=== PATIENT | female | born 1955 | race Two or more races ===

== ENCOUNTER 2016-10-03 19:26 | Emergency (ER) | payer OTHER ==
--- NOTE | ~2016-10-03 | CR181 ---
[facility] A Service of [facility] RADIOLOGY TEXT RESULTS PATIENT: ADILIA CHENG LOCATION: SED : 57 UNIT #: [id number] AGE: [address]: KALYN RAMIREZ SEX: F ORDER DR: [id number] [place] [id number] [id number] MR#: [id number] Acc #: [id number] NAME: ADILIA CHENG : 1955 SEX: F STUDY DATE/TIME: 10/03/2016 21:24 UNIT: SED ROOM: STUDY DESCRIPTION: CR Lumbar Spine 2 or 3 Views Attending Physician: Kalyn Ramirez Referring Physician: Staff Doctor Not On Ordering Physician: Gurdeep Joseph M.D. Primary Care Physician: Jaswant Amezquita M.D. MEDICAL IMAGING REPORT This report is preliminary unless electronic signature is present. EXAM Lumbar spine series. HISTORY Back pain for the past 2 weeks. COMPARISON 04/22/2015 TECHNIQUE 3 views lumbar spine were obtained. FINDINGS Moderately severe degenerative disc disease is again seen at L1-L2. Disc space narrowing and osteophyte formation has progressed since the previous exam. There is a degenerative retrolisthesis across this level. There is progressive disc space narrowing at L2-3 as well with a degenerative grade 1 retrolisthesis. L3-4 osteophyte formation and mild disc space narrowing shows little change from the previous examination. L4-5 disc space narrowing shows little change as well. The L5 vertebra is partially sacralized and L5-S1 is transitional. Posterior facet hypertrophy is seen at L4-5 and this has progressed since the previous exam. No acute bony abnormalities are seen. IMPRESSION Moderate progression of multilevel degenerative disc and facet disease as described above. Degenerative disc disease shows most of the progression at L1-2 and L2-3, while the facet hypertrophy at L4-5 shows worsening since 2015. No acute bony abnormalities are seen. Dictated by... [facility] A Service [facility] RADIOLOGY TEXT RESULTS PATIENT: ADILIA CHENG LOCATION: SED : 57 UNIT #: [id number] AGE: [address]: KALYN RAMIREZ SEX: F ORDER DR: Kevan Christianson M.D. THIS IS AN ELECTRONICALLY VERIFIED REPORT Kevan Christianson M.D. at 10/03/2016 10:19 PM SILVESTRE/canelo TD: 10/03/2016 22:06 JOB #: [id number] MEDICAL IMAGING REPORT Page 1 of 1
[~2016-10-03 19:26] MED LIST: ASPIRIN PO; AUGMENTIN; AVAPRO; AVAPRO PO; CIPRO PO; FAMOTIDINE; FLOXIN20 EA; GLUCOPHAGE XR500 MG PO; IBUPROFEN800 MG PO; LEVAQUIN; LEVAQUIN PO; NAPROXEN; NORVASC; NORVASC PO; PREMPRO 0.45/1.1 TAB; REGLAN; SULFAMETHOXAZOL1 TA4; TUSSINEX PO; TYLENOL #3; UNKNOWN MEDS; VICODIN 5/1 TAB 5/50 PO; VICODIN 5/500 T1 TAB PO; ZOFRAN PO; [UNRECOGNIZED DRUG - REMARK]
[2016-10-03] MEDS ORDERED: COZAAR100 MG PO (19:54)
[2016-10-03] MEDS ORDERED: ATORVASTATIN CA10 MG PO (19:54)
[2016-10-03] MEDS ORDERED: AMLODIPINE BESY10 MG PO (19:55)
[2016-10-03] MEDS ORDERED: METFORMIN PO (19:55)
[2016-10-03] MEDS ORDERED: VITAMIN D250000 UNIT PO (19:56)
== END 2016-10-03 22:24 | disposition home or self-care (01) ==
LOC: SED 19:26
DX: G89.29 Other chronic pain (principal); M54.5 Low back pain; Z90.49 Acquired absence of other specified parts of digestive tract; F17.210 Nicotine dependence, cigarettes, uncomplicated; Z79.899 Other long term (current) drug therapy
CPT/HCPCS: 72100; 96372; 99283; J1885; J2360